=== PATIENT | female | born 1995 | race Caucasian/White ===

== ENCOUNTER → 2020-04-29 14:04 | Outpatient (CLI) | payer OTHER, SELFPAY | PROVIDERS: Visit Provider Nurse Practitioner Family | DX: Z03.818 Encounter for observation for suspected exposure to other biological agents ruled out (principal) | CPT/HCPCS: U0003 ==

== ENCOUNTER 2020-06-24 19:42 | Emergency (ER) | payer OTHER, SELFPAY ==
[2020-06-24 19:55] VITALS: BP 132/85; PULSE 97; RESP 18; TEMP 36.8; O2SAT 99; BMI 25.6
--- NOTE | 2020-06-24 20:02 | HMH.EDUTC ---
[facility] [place] Clinical Impression: Sinusitis Qualifiers: Sinusitis location: unspecified location Chronicity: acute Recurrence: non-recurrent Qualified Code(s): J01.90 - Acute sinusitis, unspecified Disposition: Home, Self-Care Condition on Discharge: Good Instructions: Sinusitis, DI for Sinusitis, Preventing the Spread of Coronavirus Discharge Instructions Additional Instructions: Drink plenty of fluids. Take tylenol for pain or fever. Take the medications as directed. Follow up with your regular doctor. GO TO THE ER FOR ANY WORSENING SYMPTOMS FOLLOW THE DIRECTIONS ON THE COVID-19 HAND OUT THAT WE GAVE YOU REGARDING SELF-ISOLATION UNTIL YOU KNOW YOUR COVID-19 RESULTS Prescriptions: Brompheniramine/Pseudoephed/Dm [Bromfed Dm Cough Syrup] 5 ml PO Q6HP PRN #240 syrup PRN Reason: Cough Transmission Status: [facility] Azithromycin [Z-Chevy 250mg Tab*] 250 mg PO UD DOSE PK #6 tab Transmission Status: Received by [facility] Referrals: PCP,No [Primary Care Provider] - Forms: Work/School Release Time of Disposition: 20:25 Medical Decision Making - Medical Records Medical records reviewed: No: I reviewed the patient's medical records. - Anthony Inquiry Pt receiving controlled substance: No Vital Signs: 06/24/20 19:55 06/24/20 20:45 Temperature 98.2 F 98.2 F Temperature Source Oral Oral Pulse Rate 97 H Pulse Rate [Radial] 97 H Respiratory Rate 18 18 Blood Pressure 132/85 Blood Pressure [Right Arm] 132/85 Blood Pressure Mean [Right Arm] 100 Blood Pressure Source Automatic Cuff Blood Pressure Source [Right Arm] Automatic Cuff Blood Pressure Position Sitting Blood Pressure Position [Right Arm] Sitting 02 Sat by Pulse Oximetry 99 Oxygen Delivery Method Room Air Room Air Orders (Tests/Meds): ED MEDICATIONS Discontinued Medications Generic Name Dose Route Start Last Admin Trade Name Freq PRN Reason Stop Dose Admin Azithromycin 500 mg 06/24/20 20:27 06/24/20 20:43 Azithromycin 250mg Tablet PO 06/24/20 20:28 500 mg ONCE ONE Administration Protocol ORDERS Category Date Time Status Full Resp Panel w/COVID ([facility]) Routine Lab 06/24/20 20:10 Received [facility] [place] - General Stated complaint: Fever,Sore throat,cough,Body pain Time Seen by Provider: 06/24/20 20:02 Mode of Arrival: Ambulatory Source of Information: Patient Limitations: No Limitations Description of Symptoms (Recalled from Triage Doc. by RN): SORE THROAT, FEVER, SINCE YESTERDAY HEENT Symptoms (Recalled from RN notes): Yes Resp Symptoms (Recalled from RN notes): No Skin Symptoms (Recalled from RN notes): No MS Symptoms (Recalled from RN notes): No Functional Status (Recalled from RN notes): WNL - History of Present Illness Provider Complaint: She c/o feeling bad, running a fever and having sinus and chest congestion since yesterday. 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 - Related Data Home Medications Medication Instructions Recorded Confirmed norethindrone acetate 1 mg-ethinyl 1 tab PO DAILY tab 10/13/19 10/16/19 estradiol 20 mcg tablet Previous Rx's Medication Instructions Recorded sertraline 50 mg tablet 50 mg PO DAILY #30 tab 11/28/19 Azithromycin [Z-Chevy 250mg Tab*] 250 mg PO UD DOSE PK #6 tab 06/24/20 Brompheniramine/Pseudoephed/Dm 5 ml PO Q6HP PRN #240 syrup 06/24/20 [Bromfed Dm Cough Syrup] Allergies Allergy/AdvReac Type Severity Reaction Status Date / Time No Known Allergies Allergy Verified 10/16/19 16:11 - Worker's Comp Is this a Worker's Comp case?: No [facility] History - Hepatitis A Screen Drug use history?: No High risk sexual behaviors?: No History of sexually transmitted infection?: No Currently employed?: No Childcare worker?: No Do you have indoor plumbing?: Yes Do you have electricity?: Yes Attestation statement:: This patient has been screened for H
[2020-06-24 20:45] VITALS: BP 132/85; PULSE 97; RESP 18; TEMP 36.8; O2SAT 99
[2020-06-26 14:11] LABS: Covid-19 Nasal PCR Sendout Lex NOT DETECTED
== END 2020-06-24 20:46 | disposition home or self-care (01) ==
PROVIDERS: Emergency Provider Nurse Practitioner Family
DX: J01.90 Acute sinusitis, unspecified (principal)
CPT/HCPCS: 87581; 87633; 87798; 99201; U0004

== ENCOUNTER → 2021-07-01 11:57 | Outpatient (CLI) | payer OTHER, SELFPAY | PROVIDERS: Visit Provider Nurse Practitioner | DX: Z20.822 Contact with and (suspected) exposure to COVID-19 (principal) | CPT/HCPCS: C9803; U0003; U0005 ==

== ENCOUNTER → 2021-07-05 09:55 | Outpatient (CLI) | payer OTHER, SELFPAY ==
[2021-07-05 10:17] LABS: Coronavirus 19, PCR Not Detected (NotDetected); Influenza A, PCR Not Detected (NotDetected); Influenza B, PCR Not Detected (NotDetected)
== END ==
PROVIDERS: Visit Provider Nurse Practitioner
DX: Z20.822 Contact with and (suspected) exposure to COVID-19 (principal)
CPT/HCPCS: C9803; U0003; U0005

== ENCOUNTER → 2021-10-05 12:30 | Outpatient (CLI) | payer OTHER, SELFPAY | PROVIDERS: PCP Nurse Practitioner; Visit Provider Nurse Practitioner | DX: U07.1 COVID-19 (principal) | CPT/HCPCS: C9803; U0003; U0005 ==

== ENCOUNTER 2021-11-26 11:25 | Emergency (ER) | payer OTHER, SELFPAY ==
[2021-11-26 14:10] VITALS: BP 130/89; PULSE 98; RESP 18; TEMP 36.9; O2SAT 100; BMI 24.7
--- NOTE | 2021-11-26 14:36 | HMH.EDUTC ---
[facility] [place]ression: Sinusitis Qualifiers: Sinusitis location: maxillary Chronicity: acute Recurrence: non-recurrent Qualified Code(s): J01.00 - Acute maxillary sinusitis, unspecified Eustachian tube dysfunction Qualifiers: Laterality: bilateral Qualified Code(s): H69.83 - Other specified disorders of Eustachian tube, bilateral Disposition: Home, Self-Care Condition on Discharge: Good Instructions: DI for Sinusitis Prescriptions: Amoxicillin [Amoxicillin 875MG Tab] 875 mg PO Q12H #20 tab Transmission Status: Pending to [facility] predniSONE [Prednisone 20mg Tab] 20 mg PO BID 5 Days #10 tab Transmission [facility]: [facility] Pseudoephedrine HCl [Sudafed 12 Hour 120mg Tab] 1 tab PO BID 10 Days #20 tab Transmission Status: [facility] Referrals: Provider,Referral, MD [Primary Care Provider] - Time of Disposition: 14:44 Medical Decision Making - Anthony Inquiry Pt receiving controlled substance: No Vital Signs: 11/26/21 14:10 Temperature 98.5 F Temperature Source Oral Pulse Rate [Right Brachial] 98 H Respiratory Rate 18 Blood Pressure [Right Arm] 130/89 Blood Pressure Mean [Right Arm] 102 Blood Pressure Source [Right Arm] Automatic Cuff Blood Pressure Position [Right Arm] Sitting 02 Sat by Pulse Oximetry 100 Oxygen Delivery Method Room Air [facility] [place] - General Stated complaint: sinus congestion, ear pain Time Seen by Provider: 11/26/21 14:36 Mode of Arrival: Ambulatory Source of Information: Patient Limitations: No Limitations Description of Symptoms (Recalled from Triage Doc. by RN): PATIENT C/O HEAD PRESSURE AND EAR PAIN HEENT Symptoms (Recalled from RN notes): Yes Resp Symptoms (Recalled from RN notes): No Skin Symptoms (Recalled from RN notes): No MS Symptoms (Recalled from RN notes): No Functional Status (Recalled from RN notes): WNL - History of Present Illness Provider Complaint: Bilateral ear pain, congestion, stuffiness. Green mucous. Mild sore throat. No cough or chest congestion. No vomiting or diarrhea. No fever. Onset (ago): hour(s) (1) Location: head Relieving factors: none Exacerbating factors: none Associated symptoms: denies other symptoms Treatments prior to arrival: none - Related Data Home Medications Medication Instructions Recorded Confirmed norethindrone acetate 1 mg-ethinyl 1 tab PO DAILY tab 10/13/19 11/26/21 estradiol 20 mcg tablet Previous Rx's Medication Instructions Recorded Amoxicillin [Amoxicillin 875MG 875 mg PO Q12H #20 tab 11/26/21 Tab] Pseudoephedrine HCl [Sudafed 12 1 tab PO BID 10 Days #20 tab 11/26/21 Hour 120mg Tab] predniSONE [Prednisone 20mg 20 mg PO BID 5 Days #10 tab 11/26/21 Tab] Allergies Allergy/AdvReac Type Severity Reaction Status Date / Time No Known Allergies Allergy Verified 10/16/19 16:11 - Worker's Comp Is this a Worker's Comp case?: No [facility] History - Hepatitis A Screen Drug use history?: No High risk sexual behaviors?: No History of sexually transmitted infection?: No Currently employed?: No Childcare worker?: No Do you have indoor plumbing?: Yes Do you have electricity?: Yes Attestation statement:: This patient has been screened for Hepatitis A risk factors. I have reviewed the patient's past medical history: Yes Comment: wisdom teeth extraction - Social History Smoking Status: Never smoker Alcohol Intake: never Alcohol Intake Frequency:: holidays/special occasions only Substance Use Type: denies use Occupational Status: employed Housing: house Household Members: significant other Family Hx:: Non-contributory ROS Obtained: Yes All systems reviewed & no additional complaints - Constitutional Constitutional: Reports headache(s), Reports malaise - ENT Ears, Nose, Mouth, and Throat: Reports otalgia, Reports hearing loss, Reports nasal discharge, Reports sore throat Physical Exam - General Gene
[2021-11-26 14:49] VITALS: BP 130/89; PULSE 98; RESP 18; TEMP 36.9; O2SAT 100
== END 2021-11-26 15:02 | disposition home or self-care (01) ==
PROVIDERS: Emergency Provider Physician Assistant
DX: J01.00 Acute maxillary sinusitis, unspecified (principal); H69.83 Other specified disorders of Eustachian tube, bilateral; J02.9 Acute pharyngitis, unspecified; Z79.52 Long term (current) use of systemic steroids; Z79.899 Other long term (current) drug therapy
CPT/HCPCS: 96372; 99213; G0463; J1040

== ENCOUNTER 2021-12-05 10:27 | Emergency (ER) | payer OTHER, SELFPAY ==
[2021-12-05 10:40] VITALS: BP 126/90; PULSE 119; RESP 18; TEMP 37; O2SAT 96; BMI 24.7
[2021-12-05 10:51] LABS: UTC Influenza A Antigen Positive (Negative); UTC Influenza B Antigen Negative (Negative)
[2021-12-05 11:09] LABS: Strep Scrn Group A (Rapid) Negative (Negative)
--- NOTE | 2021-12-05 11:29 | HMH.EDUTC ---
[facility] [place] Disposition Clinical Impression: Influenza A Disposition: Home, Self-Care Condition on Discharge: Good Instructions: Influenza, DI for Influenza -- Adult Additional Instructions: Drink plenty of fluids. Take tylenol or ibuprofen for pain or fever. Take the medications as directed. Follow up with your regular doctor. GO TO THE ER FOR ANY WORSENING SYMPTOMS Prescriptions: Promethazine/Dextromethorphan [Promethazine-Dm Syrup] 5 ml PO Q6HP PRN #240 ml PRN Reason: Cough Transmission Status: Received by [facility] Benzonatate [Benzonatate 100mg cap] 100 mg PO TIDP PRN #30 cap PRN Reason: Cough Transmission Status: Received by [facility] Oseltamivir Phosphate [Tamiflu 75mg Capsule] 75 mg PO BID #10 cap Transmission Status: Received by [facility] Referrals: Provider,Referral, MD [Primary Care Provider] - Forms: Work/School Release Time of Disposition: 11:47 Medical Decision Making - Medical Records Medical records reviewed: No: I reviewed the patient's medical records. - Anthony Inquiry Pt receiving controlled substance: No Vital Signs: 12/05/21 10:40 12/05/21 11:56 Temperature 98.6 F 98.6 F Temperature Source Oral Pulse Rate 119 H Pulse Rate [Left] 119 H Respiratory Rate 18 18 Blood Pressure 126/90 Blood Pressure [Right Arm] 126/90 Blood Pressure Mean [Right Arm] 102 02 Sat by Pulse Oximetry 96 - Lab Data Lab results reviewed: Yes: I reviewed the patient's lab results. Lab Results 12/05/21 10:38: Group A Strep Rapid Negative 12/05/21 10:38: Influenza Type A Ag Positive A, Influenza Type B Ag Negative Orders (Tests/Meds): ORDERS Category Date Time Status Strep Screen Confirmation Stat Micro 12/05/21 10:38 Received [facility] [place] HPI - General Stated complaint: cough, congestion, ear pain, chills, body aches Time Seen by Provider: 12/05/21 11:29 Mode of Arrival: Ambulatory Source of Information: Patient Limitations: No Limitations Description of Symptoms (Recalled from Triage Doc. by RN): pt c/o nasal/chest congestion, fever and body aches. pt states this has been off/on x3 wks. HEENT Symptoms (Recalled from RN notes): Yes Resp Symptoms (Recalled from RN notes): No Skin Symptoms (Recalled from RN notes): No MS Symptoms (Recalled from RN notes): No Functional Status (Recalled from RN notes): wnl - History of Present Illness Provider Complaint: She states that for the past 2 days she has had chills, low grade fever,a worsening cough and she has felt bad. - Related Data Home Medications Medication Instructions Recorded Confirmed norethindrone acetate 1 mg-ethinyl 1 tab PO DAILY tab 10/13/19 11/26/21 estradiol 20 mcg tablet Previous Rx's Medication Instructions Recorded Amoxicillin [Amoxicillin 875MG 875 mg PO Q12H #20 tab 11/26/21 Tab] Pseudoephedrine HCl [Sudafed 12 1 tab PO BID 10 Days #20 tab 11/26/21 Hour 120mg Tab] predniSONE [Prednisone 20mg 20 mg PO BID 5 Days #10 tab 11/26/21 Tab] Benzonatate [Benzonatate 100mg 100 mg PO TIDP PRN #30 cap 12/05/21 cap] Oseltamivir Phosphate [Tamiflu 75 mg PO BID #10 cap 12/05/21 75mg Capsule] Promethazine/Dextromethorphan 5 ml PO Q6HP PRN #240 ml 12/05/21 [Promethazine-Dm Syrup] Allergies Allergy/AdvReac Type Severity Reaction Status Date / Time No Known Allergies Allergy Verified 10/16/19 16:11 - Worker's Comp Is this a Worker's Comp case?: No [facility] History - Hepatitis A Screen Drug use history?: No High risk sexual behaviors?: No History of sexually transmitted infection?: No Currently employed?: No Childcare worker?: No Do you have indoor plumbing?: Yes Do you have electricity?: Yes Attestation statement:: This patient has been screened for Hepatitis A risk factors. I have reviewed the patient's past medical history: Yes Comment: wisdom teeth extraction - Social History Smoking Status: Never smoker Alc
[2021-12-05 11:56] VITALS: BP 126/90; PULSE 119; RESP 18; TEMP 37
== END 2021-12-05 11:57 | disposition home or self-care (01) ==
PROVIDERS: Emergency Provider Nurse Practitioner Family
DX: J10.1 Influenza due to other identified influenza virus with other respiratory manifestations (principal)
CPT/HCPCS: 87430; 87804; 99212; G0463

== ENCOUNTER 2021-12-21 13:17 | Emergency (ER) | payer OTHER, SELFPAY ==
[2021-12-21 14:55] VITALS: BP 0/0; PULSE 0; RESP 0; TEMP -17.7; TEMP 0
== END 2021-12-21 14:58 | disposition left against medical advice (07) ==
PROVIDERS: Emergency Provider Nurse Practitioner Family
DX: Z53.21 Procedure and treatment not carried out due to patient leaving prior to being seen by health care provider (principal)